=== PATIENT | female | born 1995 | race Caucasian/White ===

== ENCOUNTER 2020-10-05 18:17 | Emergency (ER) | payer OTHER ==
[~2020-10-05 18:17] MED LIST: COLACE 100MG C100 MG PO
[2020-10-05] MEDS ORDERED: CEPHALEXIN500 MG PO (20:09)
[2020-10-05] MEDS ORDERED: SILVADENE CREAM20 GM TOP (20:09)
[2020-10-05] MEDS ORDERED: LODINE CAP 300300 MG PO (20:11)
== END 2020-10-05 21:08 | disposition home or self-care (01) ==
LOC: ER1 18:17
DX: T24.201A Burn of second degree of unspecified site of right lower limb, except ankle and foot, initial encounter (principal); T31.0 Burns involving less than 10% of body surface; Z88.5 Allergy status to narcotic agent; Z23 Encounter for immunization; X08.8XXA Exposure to other specified smoke, fire and flames, initial encounter; Y92.009 Unspecified place in unspecified non-institutional (private) residence as the place of occurrence of the external cause
CPT/HCPCS: 16020; 90471; 90715; 99283

== ENCOUNTER 2020-10-07 15:33 | Emergency (ER) | payer OTHER ==
[~2020-10-07 15:33] MED LIST changes: +CEPHALEXIN500 MG PO; +LODINE CAP 300300 MG PO; +SILVADENE CREAM20 GM TOP
[2020-10-07] MEDS ORDERED: BACTRIM DS TAB1 EACH PO (16:28)
== END 2020-10-07 16:55 | disposition home or self-care (01) ==
LOC: ER1 15:33
DX: T24.221A Burn of second degree of right knee, initial encounter (principal); Z88.1 Allergy status to other antibiotic agents; Z88.8 Allergy status to other drugs, medicaments and biological substances; X08.8XXA Exposure to other specified smoke, fire and flames, initial encounter; Z88.5 Allergy status to narcotic agent
CPT/HCPCS: 96372; 99283; J1885

== ENCOUNTER → 2021-06-26 | Outpatient (CLI) | payer OTHER ==
[~2021-06-26] MED LIST changes: +BACTRIM DS TAB1 EACH PO
== END ==
LOC: NM 08:51
DX: R10.11 Right upper quadrant pain (principal)
CPT/HCPCS: 78227; A9537; J2805